=== PATIENT | male | born 1975 | race Hispanic/Latino ===

== ENCOUNTER 2023-04-22 15:33 | Emergency (ER) | payer SELFPAY ==
[2023-04-22] MEDS ORDERED: Fluorescein Opthalmic Strip ONE ×2 (15:45→15:46)
[2023-04-22] MEDS ORDERED: Proparacaine 0.5% Opth 15 ML BOT ONE (15:45)
== END 2023-04-22 17:56 | disposition home or self-care (01) ==
LOC: ERS 15:33
DX: T15.02XA Foreign body in cornea, left eye, initial encounter (principal)
CPT/HCPCS: 65205; 70480